=== PATIENT | female | born 1950 | race Caucasian/White ===

== ENCOUNTER → 2016-06-03 | Outpatient (CLI) | payer OTHER ==
--- NOTE | 2016-06-03 18:24 | DX ---
Left hand, 3 views History: M 25.532, pain, fall on ice. Findings: Distal radius and ulna demonstrate no evidence of fracture. Scaphoid and carpal bones appea r intact without evidence of definite fracture or dislocation. Mild osteoporosis first carpometacarpa l joint with subchondral sclerosis and osteophytes. Metacarpals appear intact without evidence of fra cture. Fingers appear intact without fracture. Moderate osteophytes fifth distal interphalangeal join t with joint space narrowing, subchondral sclerosis and osteophytes. Impression: 1. No definite fracture of the left hand. 2. 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
--- NOTE | 2016-06-03 18:27 | DX ---
Left wrist, 4 views History: M25.532, pain, fall on ice. Findings: Distal radius and ulna demonstrate no evidence of fracture. Scaphoid and carpal bones appe ar intact without evidence of definite fracture or dislocation. Mild osteoarthritis at the first carp ometacarpal joint with subchondral sclerosis and osteophytes. Metacarpals appear intact without evide nce of fracture. Impression: 1. No definite fracture of the left wrist. 2. Mild osteoarthritis first carpometacarpal joint.
== END ==
LOC: FIMAGING 17:24
PROVIDERS: ATTEND Internal Medicine
DX: M19.042 Primary osteoarthritis, left hand (principal); M25.532 Pain in left wrist

== ENCOUNTER → 2018-04-28 | Outpatient (CLI) | payer OTHER | LOC: FIMAGING 07:58 | PROVIDERS: ATTEND Internal Medicine | DX: Z12.31 Encounter for screening mammogram for malignant neoplasm of breast (principal); Z98.82 Breast implant status ==